=== PATIENT | male | born 1975 | race Caucasian/White ===

== ENCOUNTER 2018-06-07 06:04 | Day surgery (SDC) | payer OTHER | END 2018-06-07 13:45 | disposition home or self-care (01) | LOC: CIR.AMB 06:04 | DX: K43.6 Other and unspecified ventral hernia with obstruction, without gangrene (principal) ==

== ENCOUNTER 2019-03-13 09:36 | Outpatient (CLI) | payer OTHER | END 2019-03-13 09:38 | disposition home or self-care (01) | LOC: RAD 09:36 | DX: J06.9 Acute upper respiratory infection, unspecified (principal) ==

== ENCOUNTER → 2019-06-08 | Emergency (ER) | payer OTHER ==
[~2019-06-08] VITALS: Ht 167.6 cm; Wt 77.1 kg
[~2019-06-08] MED LIST: ALBUTEROL2.5 MG/3 M IH; ZITHROMAX500 MG PO; ZYNCOF 20-400120 ML PO
== END | disposition home or self-care (01) ==
LOC: ER 02:28
DX: J40 Bronchitis, not specified as acute or chronic (principal)

== ENCOUNTER 2021-01-22 01:54 | Emergency (ER) | payer OTHER ==
[~2021-01-22] VITALS: Ht 170.2 cm; Wt 81.6 kg
[2021-01-22] MEDS ORDERED: CHLORDIAZEPOXI1 EACH PO (12:44)
[2021-01-22] MEDS ORDERED: PEPCID AC20 MG PO (12:44)
[2021-01-22] MEDS ORDERED: PREVACID30 MG PO (12:44)
== END 2021-01-22 13:23 | disposition home or self-care (01) ==
LOC: ER 01:54
DX: K29.70 Gastritis, unspecified, without bleeding (principal); R10.84 Generalized abdominal pain